=== PATIENT | female | born 1980 | race Asian ===

== ENCOUNTER → 2024-03-03 | Day surgery (SDC) | payer OTHER, SELFPAY | LOC: EDSTATUS 13:00 → BICULT 13:11 | PROVIDERS: ATTEND Radiology Vascular & Interventional Radiology | PROC: 0HB5XZX Excision of Chest Skin, External Approach, Diagnostic (ICD-10-PCS; principal; 2024-03-03) | DX: N63.24 Unspecified lump in the left breast, lower inner quadrant (principal); N61.1 Abscess of the breast and nipple; R92.8 Other abnormal and inconclusive findings on diagnostic imaging of breast | CPT/HCPCS: 19083; 88305; 88341; 88342 ==